=== PATIENT | male | born 1970 | race Caucasian/White ===

== ENCOUNTER 2021-10-08 02:16 | Inpatient (IN) | payer OTHER ==
[~2021-10-08] VITALS: Ht 182.9 cm; Wt 84.6 kg
[2021-10-08] MEDS ORDERED: TRAZ-257 PO (02:31)
[2021-10-08] MEDS ORDERED: SUBO4MIS SL (02:32)
[2021-10-08] MEDS ORDERED: CLAR10CA3 PO (02:33)
[2021-10-08] MEDS ORDERED: GABA-283 PO (02:33)
[2021-10-08 12:18] LABS: HEMOGLOBIN 14.5 g/dl (13.5-17.5); MEAN CORPUSCULAR HEMOGLOBIN 29.5 pg (27.0-33.0); MEAN CORPUSCULAR HGB CONC 33.7 g/dl (32.0-36.5); MEAN CORPUSCULAR VOLUME 87.6 fl (80.0-96.0); PLATELET COUNT, AUTOMATED 273 10^3/uL (150-450); RED BLOOD COUNT 4.91 10^6/uL (4.30-6.10); WHITE BLOOD COUNT 10.4 10^3/uL (4.0-10.0)
[2021-10-08 12:35] LABS: AMPHETAMINES LEVEL URINE POSITIVE (NEGATIVE); BARBITURATES URINE NEGATIVE (NEGATIVE); BENZODIAZEPINES URINE NEGATIVE (NEGATIVE); CANNABINOIDS URINE POSITIVE (NEGATIVE); COCAINE METABOLITE URINE NEGATIVE (NEGATIVE); METHADONE URINE NEGATIVE (NEGATIVE); OPIATES URINE NEGATIVE (NEGATIVE); PHENCYCLIDINE URINE NEGATIVE (NEGATIVE)
[2021-10-08] MEDS ORDERED: LORazepam 2 MG TAB PO STA (12:47)
[2021-10-08] MEDS ORDERED: OLANZapine ORAL DISINTEGRATING TAB 5MG PO ONE (12:50)
[2021-10-08 12:54] LABS: ALBUMIN 4.3 GM/DL (3.2-5.2); ALT/SGPT 25 U/L (12-78); BILIRUBIN,DIRECT 0.2 MG/DL (0.0-0.2); BILIRUBIN,TOTAL 0.8 MG/DL (0.2-1.0); BLOOD UREA NITROGEN 9 MG/DL (7-18); CALCIUM LEVEL 9.6 MG/DL (8.5-10.1); CARBON DIOXIDE LEVEL 26 MEQ/L (21-32); CHLORIDE LEVEL 104 MEQ/L (98-107); CREATININE FOR GFR 0.82 MG/DL (0.70-1.30); ETHYL ALCOHOL (ETHANOL) < 0.003 % (0.000-0.010); GLOMERULAR FILTRATION RATE > 60.0 (>60); GLUCOSE, FASTING 96 MG/DL (70-100); POTASSIUM SERUM 4.2 MEQ/L (3.5-5.1); SODIUM LEVEL 138 MEQ/L (136-145); TOTAL PROTEIN 7.3 GM/DL (6.4-8.2)
[2021-10-08 12:55] LABS: ACETAMINOPHEN LEVEL < 2.0 UG/ML (10.0-30.0)
[2021-10-08] MEDS ORDERED: chlorproMAZINE 25 MG TABLET PO ONE (13:30)
[2021-10-08] MEDS ORDERED: GABAPENTIN 400MG CAP PO ONE (13:50)
[2021-10-08 20:36] LABS: RSV AMPLIFICATION NEGATIVE (NEGATIVE)
[2021-10-08] MEDS ORDERED: RISP-8 PO (22:41)
[2021-10-08] MEDS ORDERED: HYDR50TA70 PO (22:41)
[2021-10-08] MEDS ORDERED: MED REC COMMENT (22:44)
[2021-10-08] MEDS ORDERED: HOME MED LIST COMPLETE! XX SCH (22:50)
[2021-10-09] MEDS ORDERED: hydrOXYzine 50 MG TAB PO PRN (13:55)
[2021-10-09] MEDS ORDERED: MAALOX 30 ML SUSP *UDC PO PRN (13:55)
[2021-10-09] MEDS ORDERED: MOM 30ML SUSPENSION UDC PO PRN (13:55)
[2021-10-09 16:06] VITALS: BP 137/75
[2021-10-09] MEDS: ACETAMINOPHEN TAB 650MG DOSE (2X325MG) PO PRN (16:23)
[2021-10-09] MEDS ORDERED: ALBUTEROL 90 MCG/ACT 8GM HFA INHALER INH PRN (16:30)
[2021-10-09] MEDS: GABAPENTIN 300 MG CAP PO SCH ×2 (16:49→21:20)
[2021-10-09] MEDS: FLUTICASONE PROP 0.05% NASAL SPRAY 16 GM (FLONASE) NARES SCH (21:19)
[2021-10-09] MEDS: traZODone 50 MG TAB PO PRN (21:20)
[2021-10-09] MEDS: LORATADINE 10 MG TAB PO SCH (21:20)
[2021-10-10] MEDS: GABAPENTIN 300 MG CAP PO SCH ×2 (05:48→14:00)
[2021-10-10 06:12] VITALS: BP 123/69
[2021-10-10] MEDS: risperiDONE 1 MG TAB PO SCH (09:00)
[2021-10-10] MEDS: FLUTICASONE PROP 0.05% NASAL SPRAY 16 GM (FLONASE) NARES SCH ×2 (10:00→20:58)
[2021-10-10] MEDS ORDERED: LORazepam 2 MG TAB PO PRN (13:05)
[2021-10-10] MEDS: THIAMINE 100 MG TAB PO SCH ×2 (14:26→20:58)
[2021-10-10] MEDS: MULTIVITAMINS/MINERALS THERAP 1 TAB PO SCH (14:26)
[2021-10-10] MEDS: FOLIC ACID 1 MG TAB PO SCH (14:26)
[2021-10-10] MEDS: NICOTINE 21MG/24HR 1 EA TRANSDERMAL TD SCH (14:32)
[2021-10-10 16:06] VITALS: BP 138/92
[2021-10-10 16:30] VITALS: BP 138/92
[2021-10-10] MEDS: traZODone 50 MG TAB PO PRN (20:58)
[2021-10-10] MEDS: GABAPENTIN 400MG CAP PO SCH (20:58)
[2021-10-10] MEDS: LORATADINE 10 MG TAB PO SCH (20:59)
[2021-10-11 06:29] VITALS: BP 120/69
[2021-10-11 06:36] VITALS: BP 120/69
[2021-10-11 07:45] LABS: CHOLESTEROL RISK RATIO 3.743 (<5)
[2021-10-11] MEDS: THIAMINE 100 MG TAB PO SCH ×2 (08:49→21:28)
[2021-10-11] MEDS: MULTIVITAMINS/MINERALS THERAP 1 TAB PO SCH (08:49)
[2021-10-11] MEDS: GABAPENTIN 400MG CAP PO SCH ×2 (08:49→21:28)
[2021-10-11] MEDS: FOLIC ACID 1 MG TAB PO SCH (08:49)
[2021-10-11] MEDS: FLUTICASONE PROP 0.05% NASAL SPRAY 16 GM (FLONASE) NARES SCH ×2 (08:50→21:29)
[2021-10-11] MEDS: NICOTINE 21MG/24HR 1 EA TRANSDERMAL TD SCH (08:50)
[2021-10-11] MEDS: risperiDONE 1 MG TAB PO SCH (09:00)
[2021-10-11 14:01] VITALS: BP 121/79
[2021-10-11] MEDS ORDERED: COMBIVENT RESPIMAT 100-20MCG INHALER 4GM INH PRN (17:15)
[2021-10-11] MEDS ORDERED: OLANZapine 10 MG TAB PO SCH (21:00)
[2021-10-11 21:24] VITALS: BP 123/72
[2021-10-11] MEDS: LORATADINE 10 MG TAB PO SCH (21:28)
[2021-10-11] MEDS: traZODone 50 MG TAB PO PRN (21:28)
[2021-10-11] MEDS: ACETAMINOPHEN TAB 650MG DOSE (2X325MG) PO PRN (21:28)
[2021-10-12 06:52] VITALS: BP 120/84
[2021-10-12] MEDS: MULTIVITAMINS/MINERALS THERAP 1 TAB PO SCH (09:12)
[2021-10-12] MEDS: THIAMINE 100 MG TAB PO SCH (09:14)
[2021-10-12] MEDS: FOLIC ACID 1 MG TAB PO SCH (09:15)
[2021-10-12] MEDS: GABAPENTIN 400MG CAP PO SCH ×2 (09:15→22:40)
[2021-10-12] MEDS: NICOTINE 21MG/24HR 1 EA TRANSDERMAL TD SCH (09:16)
[2021-10-12] MEDS: FLUTICASONE PROP 0.05% NASAL SPRAY 16 GM (FLONASE) NARES SCH ×3 (09:18→22:42)
[2021-10-12] MEDS ORDERED: ONDANSETRON 4 MG TAB PO PRN (10:15)
[2021-10-12 17:39] VITALS: BP 121/68
[2021-10-12] MEDS: ACETAMINOPHEN TAB 650MG DOSE (2X325MG) PO PRN (17:46)
[2021-10-12] MEDS ORDERED: IBUPROFEN 600MG TAB PO PRN (21:00)
[2021-10-12] MEDS ORDERED: OLANZapine 5 MG TAB PO SCH (21:00)
[2021-10-12] MEDS: LORATADINE 10 MG TAB PO SCH (22:40)
[2021-10-13 07:05] VITALS: BP 128/81
[2021-10-13] MEDS: NICOTINE 21MG/24HR 1 EA TRANSDERMAL TD SCH (09:55)
[2021-10-13] MEDS: FLUTICASONE PROP 0.05% NASAL SPRAY 16 GM (FLONASE) NARES SCH (09:55)
[2021-10-13] MEDS: GABAPENTIN 400MG CAP PO SCH (09:55)
[2021-10-13] MEDS ORDERED: NICO21PAT TD (10:53)
[2021-10-13] MEDS ORDERED: OLAN1TAB16 PO (10:53)
[2021-10-13] MEDS ORDERED: GABA-283 PO (10:53)
== END 2021-10-13 13:10 | disposition home or self-care (01) | DRG 751 ==
LOC: M ED 02:16 → M ED INP 10-09 13:53 → M PSY 10-09 15:00
PROVIDERS: ADMIT Psychiatry & Neurology Psychiatry; ATTEND Psychiatry & Neurology Psychiatry
DX: F29 Unspecified psychosis not due to a substance or known physiological condition (principal); U07.1 COVID-19; F10.10 Alcohol abuse, uncomplicated; F12.90 Cannabis use, unspecified, uncomplicated; F15.90 Other stimulant use, unspecified, uncomplicated; F17.220 Nicotine dependence, chewing tobacco, uncomplicated; Z79.899 Other long term (current) drug therapy; Z88.0 Allergy status to penicillin; Z91.013 Allergy to seafood; J45.909 Unspecified asthma, uncomplicated

== ENCOUNTER 2021-10-14 21:20 | Inpatient (IN) | payer OTHER ==
[~2021-10-14] VITALS: Ht 182.9 cm; Wt 83.5 kg
[~2021-10-14 21:20] MED LIST: CLAR10CA3 PO; GABA-283 PO; HYDR50TA70 PO; MED REC COMMENT; NICO21PAT TD; OLAN1TAB16 PO; RISP-8 PO; SUBO4MIS SL; TRAZ-257 PO
[2021-10-14] MEDS ORDERED: OLANZapine 5 MG TAB PO STA (22:09)
[2021-10-14 22:34] LABS: HEMOGLOBIN 14.6 g/dl (13.5-17.5); MEAN CORPUSCULAR HEMOGLOBIN 29.9 pg (27.0-33.0); MEAN CORPUSCULAR VOLUME 88.1 fl (80.0-96.0); PLATELET COUNT, AUTOMATED 279 10^3/uL (150-450); RED BLOOD COUNT 4.88 10^6/uL (4.30-6.10); WHITE BLOOD COUNT 8.8 10^3/uL (4.0-10.0)
[2021-10-14 23:10] LABS: ACETAMINOPHEN LEVEL < 2.0 UG/ML (10.0-30.0); ALBUMIN 4.5 GM/DL (3.2-5.2); ALT/SGPT 24 U/L (12-78); BILIRUBIN,DIRECT 0.1 MG/DL (0.0-0.2); BILIRUBIN,TOTAL 0.3 MG/DL (0.2-1.0); BLOOD UREA NITROGEN 11 MG/DL (7-18); CALCIUM LEVEL 9.4 MG/DL (8.5-10.1); CARBON DIOXIDE LEVEL 24 MEQ/L (21-32); CHLORIDE LEVEL 103 MEQ/L (98-107); CREATININE FOR GFR 0.85 MG/DL (0.70-1.30); ETHYL ALCOHOL (ETHANOL) < 0.003 % (0.000-0.010); GLOMERULAR FILTRATION RATE > 60.0 (>60); GLUCOSE, FASTING 102 MG/DL (70-100); POTASSIUM SERUM 3.9 MEQ/L (3.5-5.1); SALICYLATE LEVEL 2.5 MG/DL (5.0-30.0); SODIUM LEVEL 138 MEQ/L (136-145); TOTAL PROTEIN 7.7 GM/DL (6.4-8.2)
[2021-10-14 23:22] LABS: AMPHETAMINES LEVEL URINE NEGATIVE (NEGATIVE); BARBITURATES URINE NEGATIVE (NEGATIVE); BENZODIAZEPINES URINE NEGATIVE (NEGATIVE); CANNABINOIDS URINE POSITIVE (NEGATIVE); COCAINE METABOLITE URINE NEGATIVE (NEGATIVE); METHADONE URINE NEGATIVE (NEGATIVE); OPIATES URINE NEGATIVE (NEGATIVE); PHENCYCLIDINE URINE NEGATIVE (NEGATIVE)
[2021-10-14] MEDS ORDERED: HOME MED LIST COMPLETE! XX SCH (23:35)
[2021-10-15] MEDS ORDERED: MOM 30ML SUSPENSION UDC PO PRN (11:00)
[2021-10-15] MEDS ORDERED: MAALOX 30 ML SUSP *UDC PO PRN (11:00)
[2021-10-15] MEDS ORDERED: traZODone 50 MG TAB PO PRN (11:00)
[2021-10-15] MEDS ORDERED: ACETAMINOPHEN TAB 650MG DOSE (2X325MG) PO PRN (11:00)
[2021-10-15] MEDS: GABAPENTIN 400MG CAP PO SCH ×2 (13:09→21:33)
[2021-10-15] MEDS: NICOTINE 21MG/24HR 1 EA TRANSDERMAL TD SCH (13:13)
[2021-10-15] MEDS ORDERED: NAPROXEN 250 MG TAB PO PRN (13:50)
[2021-10-15 17:26] VITALS: BP 139/70
[2021-10-15] MEDS: OLANZapine 5 MG TAB PO SCH (21:33)
[2021-10-16 06:35] VITALS: BP 102/60
[2021-10-16] MEDS: GABAPENTIN 400MG CAP PO SCH ×2 (09:38→22:14)
[2021-10-16] MEDS: NICOTINE 21MG/24HR 1 EA TRANSDERMAL TD SCH (09:39)
[2021-10-16] MEDS: hydrOXYzine 50 MG TAB PO PRN ×2 (11:59→22:13)
[2021-10-16] MEDS ORDERED: COMBIVENT RESPIMAT 100-20MCG INHALER 4GM INH PRN (17:30)
[2021-10-16] MEDS: OLANZapine 5 MG TAB PO SCH (22:15)
[2021-10-17 07:19] VITALS: BP 118/63
[2021-10-17] MEDS: GABAPENTIN 400MG CAP PO SCH (08:03)
[2021-10-17] MEDS: NICOTINE 21MG/24HR 1 EA TRANSDERMAL TD SCH (08:05)
[2021-10-17] MEDS ORDERED: COMBAER6 INH (09:31)
[2021-10-17] MEDS ORDERED: NICO21PAT TD (09:31)
== END 2021-10-17 13:22 | disposition home or self-care (01) | DRG 751 ==
LOC: M ED 21:20 → M ED INP 10-15 10:56 → M PSY 10-15 11:46
PROVIDERS: ADMIT Student in an Organized Health Care Education/Training Program; ATTEND Student in an Organized Health Care Education/Training Program
DX: F29 Unspecified psychosis not due to a substance or known physiological condition (principal); F10.10 Alcohol abuse, uncomplicated; F12.90 Cannabis use, unspecified, uncomplicated; F17.200 Nicotine dependence, unspecified, uncomplicated; F15.90 Other stimulant use, unspecified, uncomplicated; Z79.899 Other long term (current) drug therapy; Z88.0 Allergy status to penicillin; Z91.013 Allergy to seafood; J45.909 Unspecified asthma, uncomplicated

== ENCOUNTER 2021-12-28 13:31 | Emergency (ER) | payer OTHER ==
[~2021-12-28] VITALS: Ht 182.9 cm; Wt 84.1 kg
[~2021-12-28 13:31] MED LIST changes: +COMBAER6 INH
[2021-12-28] MEDS ORDERED: FLUT15.820 (13:40)
[2021-12-28] MEDS ORDERED: TRAZ-257 (13:40)
[2021-12-28 14:58] LABS: HEMATOCRIT 42.2 % (42.0-52.0); HEMOGLOBIN 14.5 g/dl (13.5-17.5); MEAN CORPUSCULAR HEMOGLOBIN 30.6 pg (27.0-33.0); MEAN CORPUSCULAR HGB CONC 34.4 g/dl (32.0-36.5); PLATELET COUNT, AUTOMATED 326 10^3/uL (150-450); RED BLOOD COUNT 4.74 10^6/uL (4.30-6.10); WHITE BLOOD COUNT 8.1 10^3/uL (4.0-10.0)
[2021-12-28 15:25] LABS: AMPHETAMINES LEVEL URINE POSITIVE (NEGATIVE); BARBITURATES URINE NEGATIVE (NEGATIVE); BENZODIAZEPINES URINE NEGATIVE (NEGATIVE); CANNABINOIDS URINE NEGATIVE (NEGATIVE); COCAINE METABOLITE URINE NEGATIVE (NEGATIVE); METHADONE URINE NEGATIVE (NEGATIVE); OPIATES URINE NEGATIVE (NEGATIVE); PHENCYCLIDINE URINE NEGATIVE (NEGATIVE)
[2021-12-28 15:31] LABS: ACETAMINOPHEN LEVEL < 2.0 UG/ML (10.0-30.0); ALT/SGPT 39 U/L (12-78); BILIRUBIN,DIRECT < 0.1 MG/DL (0.0-0.2); BILIRUBIN,TOTAL 0.2 MG/DL (0.2-1.0); BLOOD UREA NITROGEN 7 MG/DL (7-18); CALCIUM LEVEL 9.8 MG/DL (8.5-10.1); CARBON DIOXIDE LEVEL 27 MEQ/L (21-32); CHLORIDE LEVEL 108 MEQ/L (98-107); CREATININE FOR GFR 0.66 MG/DL (0.70-1.30); ETHYL ALCOHOL (ETHANOL) 0.072 % (0.000-0.010); GLOMERULAR FILTRATION RATE > 60.0 (>56); GLUCOSE, FASTING 85 MG/DL (70-100); POTASSIUM SERUM 3.9 MEQ/L (3.5-5.1); SALICYLATE LEVEL 3.2 MG/DL (5.0-30.0); SODIUM LEVEL 141 MEQ/L (136-145); THYROID STIMULATING HORMONE 0.601 uIU/ML (0.358-3.740); TOTAL PROTEIN 7.2 GM/DL (6.4-8.2)
[2021-12-28 15:37] LABS: RSV AMPLIFICATION NEGATIVE (NEGATIVE)
[2021-12-28 18:05] VITALS: BP 138/75
== END 2021-12-28 18:45 | disposition home or self-care (01) ==
LOC: M ED 13:31
DX: F29 Unspecified psychosis not due to a substance or known physiological condition (principal); F31.9 Bipolar disorder, unspecified; F17.200 Nicotine dependence, unspecified, uncomplicated; J45.909 Unspecified asthma, uncomplicated; J44.9 Chronic obstructive pulmonary disease, unspecified; F41.9 Anxiety disorder, unspecified; Z79.899 Other long term (current) drug therapy; Z91.013 Allergy to seafood; Z88.0 Allergy status to penicillin

== ENCOUNTER 2022-01-01 02:16 | Emergency (ER) | payer OTHER ==
[~2022-01-01] VITALS: Ht 182.9 cm; Wt 83.6 kg
[2022-01-01 02:16] VITALS: BP 137/95
[~2022-01-01 02:16] MED LIST changes: +FLUT15.820; +TRAZ-257
[2022-01-01] MEDS ORDERED: NAPROXEN 250 MG TAB PO ONE (07:15)
[2022-01-01] MEDS ORDERED: DOXYCYCLINE HYCLATE 100MG TABLET PO ONE (07:15)
== END 2022-01-01 07:47 | disposition home or self-care (01) ==
LOC: M ED 02:16
DX: S60.351A Superficial foreign body of right thumb, initial encounter (principal); J44.9 Chronic obstructive pulmonary disease, unspecified; F17.200 Nicotine dependence, unspecified, uncomplicated; Z88.0 Allergy status to penicillin; Z91.013 Allergy to seafood; Z79.51 Long term (current) use of inhaled steroids; Y92.9 Unspecified place or not applicable; Y93.9 Activity, unspecified; Y99.9 Unspecified external cause status

== ENCOUNTER 2022-09-14 15:45 | Emergency (ER) | payer OTHER ==
[~2022-09-14] VITALS: Ht 182.9 cm; Wt 75.0 kg
[2022-09-14 16:05] VITALS: BP 145/74
[2022-09-14] MEDS ORDERED: NAPR-837 PO (21:14)
[2022-09-14] MEDS ORDERED: CYCLOBENZAPRINE 10MG TABLET PO ONE (21:15)
[2022-09-14] MEDS ORDERED: IBUPROFEN 600MG TAB PO ONE (21:15)
[2022-09-14 21:35] LABS: AMPHETAMINES LEVEL URINE NEGATIVE (NEGATIVE); BARBITURATES URINE NEGATIVE (NEGATIVE); BENZODIAZEPINES URINE NEGATIVE (NEGATIVE); COCAINE METABOLITE URINE NEGATIVE (NEGATIVE); METHADONE URINE NEGATIVE (NEGATIVE); OPIATES URINE NEGATIVE (NEGATIVE); PHENCYCLIDINE URINE NEGATIVE (NEGATIVE)
[2022-09-14 21:36] LABS: CANNABINOIDS URINE NEGATIVE (NEGATIVE)
== END 2022-09-14 22:04 | disposition home or self-care (01) ==
LOC: M ED 15:45
DX: D18.00 Hemangioma unspecified site (principal); S02.2XXA Fracture of nasal bones, initial encounter for closed fracture; S40.012A Contusion of left shoulder, initial encounter; S10.93XA Contusion of unspecified part of neck, initial encounter; J01.40 Acute pansinusitis, unspecified; J44.9 Chronic obstructive pulmonary disease, unspecified; F17.200 Nicotine dependence, unspecified, uncomplicated; Y04.8XXA Assault by other bodily force, initial encounter; Z88.1 Allergy status to other antibiotic agents; Z91.013 Allergy to seafood; Z79.51 Long term (current) use of inhaled steroids; Z79.899 Other long term (current) drug therapy